=== PATIENT | male | born 1995 | race Caucasian/White ===

== ENCOUNTER 2018-05-22 14:07 | Emergency (ER) | payer BC ==
--- NOTE | 2018-05-22 14:33 | EDM.PDOC ---
ED HPI GENERAL MEDICAL PROBLEM - General Chief Complaint: Lower Extremity Injury/Pain Stated Complaint: RT ANKLE PAIN Time Seen by Provider: 05/22/18 14:28 Source of Information: Reports: Patient History Limitations: Reports: No Limitations - History of Present Illness INITIAL COMMENTS - FREE TEXT/NARRATIVE: HISTORY AND PHYSICAL: History of present illness: Patient is a 22-year-old female who presents to the emergency room with complaints of right medial ankle strain. He states he was running when he started to have pain to the inside of the arch of his right foot/ankle. He believes he may have stepped wrong while running. Denies any trauma or falls. No previous injury or surgeries of the affected extremity. He denies any numbness or tingling of the affected extremity. Review of systems: As per history of present illness and below otherwise all systems reviewed and negative. Past medical history: As per history of present illness and as reviewed below otherwise noncontributory. Surgical history: As per history of present illness and as reviewed below otherwise noncontributory. Social history: See social history for further information Family history: As per history of present illness and as reviewed below otherwise noncontributory. Physical exam: General: Well-developed and well-nourished 22-year-old male. Alert and oriented. Nontoxic appearing and in no acute distress. HEENT: Atraumatic, normocephalic, pupils equal and reactive bilaterally, negative for conjunctival pallor or scleral icterus, mucous membranes moist. No drooling or trismus noted. No meningeal signs. No hot potato voice noted. Lungs: Clear to auscultation, breath sounds equal bilaterally, chest nontender. Heart: S1S2, regular rate and rhythm without overt murmur Abdomen: Soft, nondistended, nontender. Pelvis: Stable nontender. Genitourinary: Deferred. Rectal: Deferred. Skin: Intact, warm, dry. No lesions or rashes noted. Extremities: Moves all extremities per self without difficulty or deficits. He is able to flex and extend the foot without difficulty. He does have some tenderness below the medial malleolus into the soft tissue of his arch. Strong pedal and pretibial pulses. Cap refill less than 3 seconds, negative for cords or calf pain. Neurovascular unremarkable. Neuro: Awake, alert, oriented. Cranial nerves II through XII unremarkable. Cerebellum unremarkable. Motor and sensory unremarkable throughout. Exam nonfocal. Notes: X-ray shows no acute findings. Give Minh wrap and crutches along with education for support. Follow-up with the orthopedic provider in the next few days if he feels like his pain is not improving. Supportive care measures were reviewed and discussed. Voices understanding and is agreeable to plan of care. Denies any further questions or concerns at this time. Diagnostics: X-ray right ankle Therapeutics: Crutches, Minh wrap Declines Pain Medication Prescription: Diclofenac (#20) Impression: Right ankle injury Plan: 1. Rest, ice, elevate the extremity as able. Please use the acewrap and crutches for comfort. 2. Tylenol and/or ibuprofen as needed for pain management. 3. Please follow-up with the orthopedic provider and/or your primary care provider in the next 1-2 days. Return to the ED as needed and as discussed Definitive disposition and diagnosis as appropriate pending reevaluation and review of above. right ankle Pain Score (Numeric/FACES): 7 - Related Data Allergies Allergy/AdvReac Type Severity Reaction Status Date / Time Penicillins Allergy Other Verified 05/22/18 15:03 Home Meds: Home Meds . [No Known Home Meds] 04/27/15 [History] Past Medical History HEENT History: Reports: None Cardiovascular History: Reports: None Respiratory History: Reports: None Gastrointestinal History: Reports: None Genitourinary History: Reports: None Musculoskeletal History: Reports: None Neurological History: Reports: None Psychiatric History: Reports: None Endocrine/Metabolic History: Reports: None Hematologic History: Reports: None Immunologic History: Reports: None Oncologic (Cancer) History: Reports: None Dermatologic History: Reports: None - Past Surgical History Head Surgeries/Procedures: Reports: None HEENT Surgical History: Reports: Tonsillectomy Cardiovascular Surgical History: Reports: None Respiratory Surgical History: Reports: None GI Surgical History: Reports: None Male Surgical History: Reports: None Endocrine Surgical History: Reports: None Neurological Surgical History: Reports: None Musculoskeletal Surgical History: Reports: None Oncologic Surgical History: Reports: None Dermatological Surgical History: Reports: None Review of Systems - Review of Systems Review Of Systems: ROS reveals no pertinent complaints other than HPI. ED EXAM, GENERAL - Physical Exam Exam: See Below (See dictation) Course - Vital Signs Last Recorded V/S: Last Vital Signs Temp 97.4 F 05/22/18 15:03 Pulse 89 05/22/18 15:03 Resp 18 05/22/18 15:03 BP 149/76 H 05/22/18 15:03 Pulse Ox 98 05/22/18 15:03 - Orders/Labs/Meds Orders: Active Orders 24 hr Category Date Time Status Ankle Min 3V Rt [CR] Stat Exams 05/22/18 14:20 Ordered DME for Discharge [COMM] Stat Oth 05/22/18 15:49 Ordered Departure - Departure Time of Disposition: 15:16 Disposition: Home, Self-Care 01 Clinical Impression: Right ankle injury Qualifiers: Encounter type: initial encounter Qualified Code(s): S99.911A - Unspecified injury of right ankle, initial encounter - Discharge Information Instructions: Ankle Sprain, [id number] Referrals: PCP,None [Primary Care Provider] - Forms: ED Department Discharge Additional Instructions: The following information is given to patients seen in the emergency department who are being discharged to home. This information is to outline your options for follow-up care. We provide all patients seen in our emergency department with a follow-up referral. The need for follow-up, as well as the timing and circumstances, are variable depending upon the specifics of your emergency department visit. If you don't have a primary care physician on staff, we will provide you with a referral. We always advise you to contact your personal physician following an emergency department visit to inform them of the circumstance of the visit and for follow-up with them and/or the need for any referrals to a consulting specialist. The emergency department will also refer you to a specialist when appropriate. This referral assures that you have the opportunity for follow-up care with a specialist. All of these measure are taken in an effort to provide you with optimal care, which includes your follow-up. Under all circumstances we always encourage you to contact your private physician who remains a resource for coordinating your care. When calling for follow-up care, please make the office aware that this follow-up is from your recent emergency room visit. If for any reason you are refused follow-up, please contact the [facility] Department at and asked to speak to the emergency department charge nurse. [facility] [address] [place] [address] [facility] [address] [place] [id number] [facility] [address] [place] [address], [address] [place] [address] 1. Rest, ice, elevate the extremity as able. Please use the acewrap and crutches for comfort. 2. Tylenol and/or ibuprofen as needed for pain management. 3. Please follow-up with the orthopedic provider and/or your primary care provider in the next 1-2 days. Return to the ED as needed and as discussed - My Orders Last 24 Hours: My Active Orders 05/22/18 15:49 DME for Discharge [COMM] Stat - Assessment/Plan Last 24 Hours: My Active Orders 05/22/18 15:49 DME for Discharge [COMM] Stat
[2018-05-22 15:05] VITALS: BP 149/76
--- NOTE | 2018-05-22 16:20 | CR ---
EXAMINATION: Right ankle HISTORY: Pain COMPARISON: None TECHNIQUE: 3 views FINDINGS/IMPRESSION: There is no acute osseous abnormality, dislocation, or fracture. Bone mineralization, joint spaces, and ankle mortise appear intact. No focal soft tissue swelling.
== END 2018-05-22 16:11 | disposition home or self-care (01) ==
LOC: MW.ED 14:07
DX: S99.911A Unspecified injury of right ankle, initial encounter (principal); Z88.0 Allergy status to penicillin; X50.1XXA Overexertion from prolonged static or awkward postures, initial encounter
CPT/HCPCS: 73610-26-RT; 73610-RT; 99283; 99283-25

== ENCOUNTER 2018-05-30 20:25 | Emergency (ER) | payer BC ==
[2018-05-30 20:43] VITALS: BP 158/72
--- NOTE | 2018-05-30 20:44 | EDM.PDOC ---
ED HPI GENERAL MEDICAL PROBLEM - General Chief Complaint: Head Injury Stated Complaint: HURT HEAD AT WORK Time Seen by Provider: 05/30/18 20:44 Source of Information: Reports: Patient - History of Present Illness INITIAL COMMENTS - FREE TEXT/NARRATIVE: HISTORY AND PHYSICAL: History of present illness: [Patient presents via private vehicle At 4 PM today he was working on area [employer] field reviewed, interactive quarter cable broke on the top of their oil rig [place] coming down striking his hard hat on the right side bending the lip of his mental heart Does have some neck pain on palpation uncertain of loss of consciousness however is alert at this time C-collar was placed on arrival No fever nausea vomiting chills sweats no chest pain shortness breath headache dizziness palpitation no bowel or urine symptoms] Review of systems: As per history of present illness and below otherwise all systems reviewed and negative. Past medical history: As per history of present illness and as reviewed below otherwise noncontributory. Surgical history: As per history of present illness and as reviewed below otherwise noncontributory. Social history: No reported history of drug or alcohol abuse. Family history: As per history of present illness and as reviewed below otherwise noncontributory. Physical exam: HEENT: Atraumatic, normocephalic, pupils reactive, negative for conjunctival pallor or scleral icterus, mucous membranes moist, throat clear, neck supple,, trachea midline. Lungs: Clear to auscultation, breath sounds equal bilaterally, chest nontender. Heart: S1S2, regular, negative for clicks, rubs, or JVD. Abdomen: Soft, nondistended, nontender. Negative for masses or hepatosplenomegaly. Negative for costovertebral tenderness. Pelvis: Stable nontender. Genitourinary: Deferred. Rectal: Deferred. Extremities: Atraumatic, negative for cords or calf pain. Neurovascular unremarkable. Neuro: Awake, alert, oriented. Cranial nerves II through XII unremarkable. Cerebellum unremarkable. Motor and sensory unremarkable throughout. Exam nonfocal. Diagnostics: [CT head CT C-spine both without contrast ] Therapeutics: [Rest ice ibuprofen ] Impression: [Contusion Right SCM spasm ] Definitive disposition and diagnosis as appropriate pending reevaluation and review of above. head area Pain Score (Numeric/FACES): 3 - Related Data Allergies Allergy/AdvReac Type Severity Reaction Status Date / Time Penicillins Allergy Other Verified 05/30/18 20:37 Home Meds: Home Meds . [No Known Home Meds] 04/27/15 [History] Past Medical History HEENT History: Reports: None Cardiovascular History: Reports: None Respiratory History: Reports: None Gastrointestinal History: Reports: None Genitourinary History: Reports: None Musculoskeletal History: Reports: None Neurological History: Reports: None Psychiatric History: Reports: None Endocrine/Metabolic History: Reports: None Hematologic History: Reports: None Immunologic History: Reports: None Oncologic (Cancer) History: Reports: None Dermatologic History: Reports: None - Past Surgical History Head Surgeries/Procedures: Reports: None HEENT Surgical History: Reports: Tonsillectomy Cardiovascular Surgical History: Reports: None Respiratory Surgical History: Reports: None GI Surgical History: Reports: None Male Surgical History: Reports: None Endocrine Surgical History: Reports: None Neurological Surgical History: Reports: None Musculoskeletal Surgical History: Reports: None Oncologic Surgical History: Reports: None Dermatological Surgical History: Reports: None Social & Family History - Family History Family Medical History: Noncontributory - Caffeine Use Caffeine Use: Reports: None ED ROS GENERAL - Review of Systems Review Of Systems: See Below ED EXAM, HEAD INJURY - Physical Exam Exam: See Below Course - Vital Signs Last Recorded V/S: Last Vital Signs Temp 99 F 05/30/18 20:37 Pulse 81 05/30/18 20:37 Resp 18 05/30/18 20:37 BP 158/72 H 05/30/18 20:37 Pulse Ox 98 05/30/18 20:37 Departure - Departure Time of Disposition: 22:07 Disposition: Home, Self-Care 01 Condition: Good Clinical Impression: Muscle spasm - Discharge Information Referrals: PCP,None [Primary Care Provider] - Forms: ED Department Discharge Additional Instructions: The following information is given to patients seen in the emergency department who are being discharged to home. This information is to outline your options for follow-up care. We provide all patients seen in our emergency department with a follow-up referral. The need for follow-up, as well as the timing and circumstances, are variable depending upon the specifics of your emergency department visit. If you don't have a primary care physician on staff, we will provide you with a referral. We always advise you to contact your personal physician following an emergency department visit to inform them of the circumstance of the visit and for follow-up with them and/or the need for any referrals to a consulting specialist. The emergency department will also refer you to a specialist when appropriate. This referral assures that you have the opportunity for follow-up care with a specialist. All of these measure are taken in an effort to provide you with optimal care, which includes your follow-up. Under all circumstances we always encourage you to contact your private physician who remains a resource for coordinating your care. When calling for follow-up care, please make the office aware that this follow-up is from your recent emergency room visit. If for any reason you are refused follow-up, please contact the [facility] emergency department at and asked to speak to the emergency department charge nurse.
--- NOTE | 2018-05-30 21:49 | CT ---
INDICATION: Pain. Trauma. TECHNIQUE: CT head without IV contrast. Findings : Loculated fluid and mucosal thickening in the left maxillary sinus with associated polyps or retention cysts. No intracranial hemorrhage, edema, or mass effect. Very mild prominence of the sulci in the cerebral hemispheres superiorly. Mild asymmetry between the size of the lateral ventricles with the right lateral ventricle being slightly larger than the left which should be a normal variant. Benign calcification along the falx anteriorly. Remainder negative. IMPRESSION: 1. No acute intracranial disease. Nonacute intracranial findings as detailed above. 2. Inflammatory changes in the left maxillary sinus as detailed above. Please note that all CT scans at this facility use dose modulation, iterative reconstruction, and/or weight-based dosing when appropriate to reduce radiation dose to as low as reasonably achievable. Dictated by Geovany Ojeda MD @ May 30 2018 9:48PM Signed by Dr. Geovany Ojeda @ May 30 2018 9:48PM
--- NOTE | 2018-05-30 21:53 | CT ---
INDICATION: Pain. Trauma. TECHNIQUE: CT cervical spine without IV contrast including axial, coronal and sagittal images. FINDINGS: No acute fracture or subluxation in cervical spine. Soft tissue stranding in the subcutaneous tissues of the posterior neck and upper back may be related to mild subcutaneous edema. Small lymph nodes in the neck bilaterally and diffusely. Remainder negative. IMPRESSION: No acute fracture or subluxation in cervical spine. Findings as above. Please note that all CT scans at this facility use dose modulation, iterative reconstruction, and/or weight-based dosing when appropriate to reduce radiation dose to as low as reasonably achievable. Dictated by Geovany Ojeda MD @ May 30 2018 9:48PM Signed by Dr. Geovany Ojeda @ May 30 2018 9:52PM
== END 2018-05-30 22:18 | disposition home or self-care (01) ==
LOC: MW.ED 20:25
DX: S00.83XA Contusion of other part of head, initial encounter (principal); M62.838 Other muscle spasm; W20.8XXA Other cause of strike by thrown, projected or falling object, initial encounter; Y99.0 Civilian activity done for income or pay; Z88.0 Allergy status to penicillin
CPT/HCPCS: 70450; 70450-26; 72125; 72125-26; 99283-25; 99284